=== PATIENT | male | born 1995 | race Caucasian/White ===

== ENCOUNTER 2018-06-03 18:12 | Emergency (ER) | payer OTHER ==
[~2018-06-03] VITALS: Ht 177.8 cm; Wt 81.6 kg
[2018-06-03 18:25] VITALS: BP 162/78; Ht 177.8 cm; Wt 81.6 kg
== END 2018-06-03 19:10 | disposition other institution (70) ==
LOC: ED 18:12
DX: Z02.89 Encounter for other administrative examinations (principal)